=== PATIENT | male | born 1960 | race Caucasian/White ===

== ENCOUNTER → 2016-11-24 | Outpatient (CLI) | payer OTHER ==
[~2016-11-24] MED LIST: ALEV220C2 PO; AMLO10TA PO; ASPI1TAB PO; ATOR1TAB21 PO; BAYE325T12 PO; HYDR-3713 PO; HYDR10TAB PO; MECL-68 PO; METF500T PO; METO50TA2 PO
--- NOTE | 2016-11-24 08:54 | REP ---
URINARY TRACT SONOGRAPHY AND RENAL ARTERY DOPPLER ASSESSMENT: HISTORY: Chronic kidney disease stage III and hypertension. MORPHOLOGIC FINDINGS: Scanning through the level of the urinary bladder shows that it is largely empty at the time of scanning. Prostate is somewhat heterogeneous and enlarged elevating the floor the bladder. Incidental note is made of fatty infiltration of the liver. Renal cortical echogenicity pattern is normal and contours are smooth on both sides. No hydronephrosis is seen in either kidney. There is mild cortical scarring on the right. No mass or cyst is seen. No calculus is noted. Right renal dimensions of 12.9 x 6.0 x 5.6 cm. The left kidney measures 12.1 x 6.2 x 7.1 cm. RENAL ARTERY DOPPLER ASSESSMENT: Peak systolic flow velocity in the abdominal aorta at the level of the main renal arteries is normal at 98.4 cm/s. Peak systolic flow velocity measured in the right main renal artery is 86.1 cm/s and that in the left main renal artery is also 86.1 cm/s. These values are normal. Renal to aortic flow velocity ratios are therefore 0.9 bilaterally and these ratios are normal. The resistive indices and acceleration times are measured in the intralobar arteries of the upper, mid and lower pole region of each kidney. These values are normal bilaterally. IMPRESSION: Mild cortical scarring right kidney. Fatty infiltration of the liver. Prominent prostate. No Doppler evidence to suggest renal artery stenosis. Signed by Almas Mcdonald MD 11/24/2016 08:06 P
== END ==
LOC: M RAD 07:15
PROVIDERS: ATTEND Family Medicine
DX: I12.9 Hypertensive chronic kidney disease with stage 1 through stage 4 chronic kidney disease, or unspecified chronic kidney disease (principal); N18.3 Chronic kidney disease, stage 3 (moderate); K76.0 Fatty (change of) liver, not elsewhere classified

== ENCOUNTER 2017-02-13 20:13 | Emergency (ER) | payer OTHER ==
[~2017-02-13] VITALS: Ht 170.2 cm; Wt 117.5 kg
[2017-02-13] MEDS ORDERED: CHLO100T9 PO (20:32)
[2017-02-13] MEDS ORDERED: BENA40TA2 PO (20:32)
[2017-02-13] MEDS ORDERED: DILT240C77 PO (20:32)
[2017-02-13] MEDS ORDERED: VOLT1GEL24 TD (20:32)
[2017-02-13] MEDS ORDERED: LABE30TA PO (20:32)
[2017-02-13] MEDS ORDERED: CLON-412 PO (20:32)
[2017-02-13] MEDS ORDERED: MECL-86 PO (20:32)
[2017-02-13] MEDS ORDERED: ASPI81TA85 PO (20:32)
[2017-02-13] MEDS ORDERED: GABA-283 PO (20:34)
[2017-02-13] MEDS ORDERED: ATOR1TAB21 PO (20:34)
--- NOTE | 2017-02-13 21:22 | ECGEPIP ---
Stationary ECG Study [facility] - ED Test Date: 2017-02-13 Pat Name: CHINO DORMAN Department: Room: - Gender: M [employer]: kimberlee : 1960 Requested By: NORA Castañeda Order Number: [id number] Reading MD: Barbara Hernandez Measurements Intervals [place] Rate: 66 P: 22 MA: 179 QRS: 55 QRSD: 110 T: 63 QT: 416 QTc: 438 Interpretive Statements SINUS RHYTHM IVCD Electronically Signed On 02-13-2017 21:21:48 EDT by Barbara Hernandez
[2017-02-13] MEDS ORDERED: MECLIZINE 25 MG TABLET PO ONE (21:45)
[2017-02-13 21:57] LABS: BASO # 0.1 K/mm3 (0.0-0.2); BASO % 0.4 % (0.0-1.0); EOS # 0.2 K/mm3 (0.0-0.50); EOS % 1.2 % (0.0-3.0); LARGE UNSTAINED CELL # 0.3 K/mm3 (0.0-0.4); LARGE UNSTAINED CELL % 1.7 % (0.0-4.0); LYMPH % 22.3 % (24.0-44.0); MEAN CORPUSCULAR HEMOGLOBIN 29.1 pg (27.0-33.0); MEAN CORPUSCULAR HGB CONC 33.6 g/dl (32.0-36.5); MEAN CORPUSCULAR VOLUME 86.4 fl (80.0-96.0); MONO # 0.7 K/mm3 (0.0-0.8); MONO % 4.1 % (0.0-5.0); NEUTROPHILS # 11.7 K/mm3 (1.8-7.7); NEUTROPHILS % 70.4 % (36.0-66.0); PLATELET COUNT, AUTOMATED 296 k/mm3 (150-450); RED CELL DISTRIBUTION WIDTH 12.9 % (11.5-14.5); WHITE BLOOD COUNT 16.6 K/mm3 (4.0-10.0)
[2017-02-13 22:22] LABS: CALCIUM LEVEL 8.7 MG/DL (8.5-10.1); CREATININE FOR GFR 1.58 MG/DL (0.70-1.30); GLOMERULAR FILTRATION RATE 48.2 (>56); POTASSIUM SERUM 3.8 MEQ/L (3.5-5.1)
[2017-02-13] MEDS ORDERED: MECL-68 PO (23:33)
[2017-02-13 23:44] VITALS: BP 134/68
--- NOTE | 2017-02-14 10:05 | REP ---
PORTABLE CHEST: Two views . HISTORY: Dyspnea and cough. COMPARISON STUDY: May 03, 2016. FINDINGS: EKG monitoring electrodes overlie the chest. The lungs are well inflated and clear. Pulmonary vasculature is not increased. No significant bony abnormality is seen. IMPRESSION: No active disease. Signed by Almas Mcdonald MD 02/14/2017 11:49 A
== END 2017-02-13 23:45 | disposition home or self-care (01) ==
LOC: M ED 20:53
DX: R42 Dizziness and giddiness (principal); R06.02 Shortness of breath; I12.9 Hypertensive chronic kidney disease with stage 1 through stage 4 chronic kidney disease, or unspecified chronic kidney disease; E11.9 Type 2 diabetes mellitus without complications; Z79.82 Long term (current) use of aspirin; Z79.899 Other long term (current) drug therapy; Z79.84 Long term (current) use of oral hypoglycemic drugs

== ENCOUNTER → 2017-03-26 | Outpatient (REF) | payer OTHER ==
[~2017-03-26] MED LIST changes: +ASPI81TA85 PO; +BENA40TA2 PO; +CHLO100T9 PO; +CLON-412 PO; +DILT240C77 PO; +GABA-283 PO; +LABE30TA PO; +MECL-86 PO; +VOLT1GEL24 TD
[2017-03-26 18:24] LABS: MEAN CORPUSCULAR HEMOGLOBIN 30.1 pg (27.0-33.0); MEAN CORPUSCULAR HGB CONC 34.5 g/dl (32.0-36.5); RED CELL DISTRIBUTION WIDTH 13.3 % (11.5-14.5); WHITE BLOOD COUNT 13.1 K/mm3 (4.0-10.0)
[2017-03-26 18:43] LABS: ALBUMIN 3.3 GM/DL (3.2-5.2); ALKALINE PHOSPHATASE 110 U/L (45-117); ALT/SGPT 41 U/L (12-78); ANION GAP 5 MEQ/L (8-16); AST/SGOT 30 U/L (15-37); BILIRUBIN,TOTAL 0.5 MG/DL (0.2-1.0); BLOOD UREA NITROGEN 8 MG/DL (7-18); CALCIUM LEVEL 8.6 MG/DL (8.5-10.1); CARBON DIOXIDE LEVEL 29 MEQ/L (21-32); CHLORIDE LEVEL 105 MEQ/L (98-107); CHOLESTEROL LEVEL 227 MG/DL (<200); CREATININE FOR GFR 1.02 MG/DL (0.70-1.30); GLOMERULAR FILTRATION RATE > 60.0 (>56); GLUCOSE, FASTING 205 MG/DL (70-105); POTASSIUM SERUM 4.7 MEQ/L (3.5-5.1); SODIUM LEVEL 139 MEQ/L (136-145); TOTAL PROTEIN 7.4 GM/DL (6.4-8.2); TRIGLYCERIDES LEVEL 166 MG/DL (<150)
== END ==
LOC: M SFHCLERA 09:03
PROVIDERS: ATTEND Family Medicine
DX: E11.9 Type 2 diabetes mellitus without complications (principal)

== ENCOUNTER → 2017-09-23 | Outpatient (CLI) | payer OTHER ==
[~2017-09-23] MED LIST changes: -BENA40TA2 PO; +BENA40TA7 PO; -METF500T PO; +METF500T13 PO; -METO50TA2 PO; +METO50TA7 PO; +VOLT1GEL15 TD; -VOLT1GEL24 TD
--- NOTE | 2017-09-23 18:39 | REP ---
RIGHT FOOT SERIES: Four views of the right foot are performed. I see no acute fracture or dislocation. There is mild posterior and inferior calcaneal spurring. There is mild narrowing and subchondral sclerosis at the first metatarsophalangeal joint. There is mild diffuse narrowing of the interphalangeal joints. IMPRESSION: Mild degenerative changes. No fracture or dislocation. Signed by Sanchez Mina MD 09/23/2017 08:12 P
== END ==
LOC: M LRY 17:16
PROVIDERS: ATTEND Nurse Practitioner Family
DX: M79.671 Pain in right foot (principal)

== ENCOUNTER → 2017-11-19 | Outpatient (REF) | payer OTHER ==
[2017-11-19 19:31] LABS: HEMOGLOBIN 14.8 g/dl (14.0-18.0); MEAN CORPUSCULAR HGB CONC 32.9 g/dl (32.0-36.5); MEAN CORPUSCULAR VOLUME 85.1 fl (80.0-96.0); PLATELET COUNT, AUTOMATED 327 10^3/uL (150-450); RED BLOOD COUNT 5.29 10^6/uL (4.30-6.10); RED CELL DISTRIBUTION WIDTH 12.9 % (11.5-14.5); WHITE BLOOD COUNT 11.7 10^3/uL (4.0-10.0)
[2017-11-19 19:49] LABS: ESTIMATED AVERAGE GLUCOSE 192 MG/DL (60-110); HEMOGLOBIN A1c 8.3 %
[2017-11-19 19:50] LABS: ALBUMIN 3.4 GM/DL (3.2-5.2); ALBUMIN/GLOBULIN RATIO 0.81 (1.00-1.93); ALKALINE PHOSPHATASE 121 U/L (45-117); ALT/SGPT 28 U/L (12-78); ANION GAP 6 MEQ/L (8-16); AST/SGOT 15 U/L (7-37); BILIRUBIN,TOTAL 0.5 MG/DL (0.2-1.0); BLOOD UREA NITROGEN 13 MG/DL (7-18); CALCIUM LEVEL 8.2 MG/DL (8.5-10.1); CARBON DIOXIDE LEVEL 29 MEQ/L (21-32); CHLORIDE LEVEL 105 MEQ/L (98-107); CHOLESTEROL LEVEL 201 MG/DL (<200); CHOLESTEROL RISK RATIO 6.483 (<5); CREATININE FOR GFR 0.99 MG/DL (0.70-1.30); GLOMERULAR FILTRATION RATE > 60.0 (>56); GLUCOSE, FASTING 186 MG/DL (70-105); HDL CHOLESTEROL 31 MG/DL (>40); LDL CHOLESTEROL 148.6 MG/DL (<100); NON-HDL-C 170 MG/DL; POTASSIUM SERUM 5.1 MEQ/L (3.5-5.1); SODIUM LEVEL 140 MEQ/L (136-145); TOTAL PROTEIN 7.6 GM/DL (6.4-8.2); TRIGLYCERIDES LEVEL 107 MG/DL (<150); URIC ACID 5.3 MG/DL (3.5-7.2)
[2017-11-19 20:06] LABS: MAU/CREAT RATIO 133.1 MCG/MG (0.0-30.0)
== END ==
LOC: M SFHCLERA 09:28
DX: I10 Essential (primary) hypertension (principal)
CPT/HCPCS: 84443

== ENCOUNTER → 2018-02-18 | Outpatient (REF) | payer OTHER ==
[2018-02-18 18:58] LABS: ANION GAP 5 MEQ/L (8-16); BLOOD UREA NITROGEN 10 MG/DL (7-18); CALCIUM LEVEL 8.6 MG/DL (8.5-10.1); CARBON DIOXIDE LEVEL 29 MEQ/L (21-32); CHLORIDE LEVEL 106 MEQ/L (98-107); CHOLESTEROL LEVEL 194 MG/DL (<200); CHOLESTEROL RISK RATIO 6.062 (<5); CREATININE FOR GFR 0.99 MG/DL (0.70-1.30); GLOMERULAR FILTRATION RATE > 60.0 (>56); GLUCOSE, FASTING 145 MG/DL (70-100); HDL CHOLESTEROL 32 MG/DL (>40); LDL CHOLESTEROL 132.6 MG/DL (<100); NON-HDL-C 162 MG/DL; SODIUM LEVEL 140 MEQ/L (136-145); TRIGLYCERIDES LEVEL 147 MG/DL (<150)
[2018-02-18 19:03] LABS: ESTIMATED AVERAGE GLUCOSE 154 MG/DL (60-110)
== END ==
LOC: M SFHCLERA 09:03
DX: E11.9 Type 2 diabetes mellitus without complications (principal); E78.5 Hyperlipidemia, unspecified; I10 Essential (primary) hypertension
CPT/HCPCS: 83036

== ENCOUNTER → 2018-04-15 | Outpatient (REF) | payer OTHER ==
[2018-04-15 19:23] LABS: CHOLESTEROL LEVEL 116 MG/DL (<200); CHOLESTEROL RISK RATIO 3.741 (<5); HDL CHOLESTEROL 31 MG/DL (>40); LDL CHOLESTEROL 72.4 MG/DL (<100); NON-HDL-C 85 MG/DL; TRIGLYCERIDES LEVEL 63 MG/DL (<150)
[2018-04-15 19:28] LABS: ESTIMATED AVERAGE GLUCOSE 137 MG/DL (60-110); HEMOGLOBIN A1c 6.4 %
== END ==
LOC: M SFHCLERA 09:06
DX: E11.9 Type 2 diabetes mellitus without complications (principal)

== ENCOUNTER → 2018-06-24 | Outpatient (REF) | payer OTHER ==
[2018-06-24 19:00] LABS: ANION GAP 7 MEQ/L (8-16); BLOOD UREA NITROGEN 22 MG/DL (7-18); CALCIUM LEVEL 8.8 MG/DL (8.8-10.2); CARBON DIOXIDE LEVEL 31 MEQ/L (21-32); CHLORIDE LEVEL 103 MEQ/L (98-107); CREATININE FOR GFR 1.37 MG/DL (0.70-1.30); GLOMERULAR FILTRATION RATE 56.4 (>49); GLUCOSE, FASTING 93 MG/DL (70-100); POTASSIUM SERUM 4.6 MEQ/L (3.5-5.1); SODIUM LEVEL 141 MEQ/L (136-145)
== END ==
LOC: M SFHCLERA 09:02
DX: I10 Essential (primary) hypertension (principal)

== ENCOUNTER → 2018-10-05 | Outpatient (REF) | payer OTHER ==
[2018-10-05 12:27] LABS: ANION GAP 10 MEQ/L (8-16); BLOOD UREA NITROGEN 32 MG/DL (7-18); CALCIUM LEVEL 8.9 MG/DL (8.8-10.2); CARBON DIOXIDE LEVEL 28 MEQ/L (21-32); CHLORIDE LEVEL 101 MEQ/L (98-107); CREATININE FOR GFR 1.64 MG/DL (0.70-1.30); GLOMERULAR FILTRATION RATE 45.8 (>49); GLUCOSE, FASTING 227 MG/DL (70-100); POTASSIUM SERUM 4.7 MEQ/L (3.5-5.1); SODIUM LEVEL 139 MEQ/L (136-145)
[2018-10-05 12:45] LABS: ESTIMATED AVERAGE GLUCOSE 180 MG/DL (60-110); HEMOGLOBIN A1c 7.9 %
== END ==
LOC: M SFHCLERA 08:35
DX: E11.9 Type 2 diabetes mellitus without complications (principal)

== ENCOUNTER → 2019-01-31 | Outpatient (REF) | payer OTHER ==
[~2019-01-31] MED LIST changes: -GABA-283 PO; +GABA-845 PO; +LABE300T2 PO; -LABE30TA PO
== END ==
LOC: M SFHCLERA 08:22
PROVIDERS: ATTEND Family Medicine
DX: Z53.9 Procedure and treatment not carried out, unspecified reason (principal); E78.5 Hyperlipidemia, unspecified; E11.9 Type 2 diabetes mellitus without complications

== ENCOUNTER → 2019-02-24 | Outpatient (REF) | payer OTHER ==
[~2019-02-24] MED LIST changes: -ASPI1TAB PO; +ASPI81TA26 PO; +DILT1CAP6 PO; -DILT240C77 PO; +HYDR-2773 PO; -HYDR10TAB PO
[2019-02-24 12:32] LABS: ALBUMIN 3.4 GM/DL (3.2-5.2); ALT/SGPT 21 U/L (12-78); BILIRUBIN,TOTAL 0.5 MG/DL (0.2-1.0); BLOOD UREA NITROGEN 14 MG/DL (7-18); CALCIUM LEVEL 8.5 MG/DL (8.8-10.2); CARBON DIOXIDE LEVEL 29 MEQ/L (21-32); CHLORIDE LEVEL 106 MEQ/L (98-107); CHOLESTEROL LEVEL 176 MG/DL (<200); CHOLESTEROL RISK RATIO 5.677 (<5); CREATININE FOR GFR 1.06 MG/DL (0.70-1.30); GLOMERULAR FILTRATION RATE > 60.0 (>49); GLUCOSE, FASTING 133 MG/DL (70-100); HDL CHOLESTEROL 31 MG/DL (>40); LDL CHOLESTEROL 124.2 MG/DL (<100); NON-HDL-C 145 MG/DL; POTASSIUM SERUM 4.5 MEQ/L (3.5-5.1); SODIUM LEVEL 141 MEQ/L (136-145); TOTAL PROTEIN 7.7 GM/DL (6.4-8.2); TRIGLYCERIDES LEVEL 104 MG/DL (<150)
[2019-02-24 12:46] LABS: HEMOGLOBIN A1c 7.2 %
[2019-02-24 12:48] LABS: MALB URINE SIEMENS 57.9 MG/L; MAU/CREAT RATIO 27.3 MCG/MG (0.0-30.0)
== END ==
LOC: M SFHCLERA 09:05
PROVIDERS: ATTEND Family Medicine
DX: E78.5 Hyperlipidemia, unspecified (principal); E11.9 Type 2 diabetes mellitus without complications

== ENCOUNTER 2019-06-16 10:13 | Emergency (ER) | payer OTHER ==
[~2019-06-16] VITALS: Ht 170.2 cm; Wt 113.2 kg
[2019-06-16] MEDS ORDERED: HEPARIN SOD (PORCINE) 5000 UNITS/ML VIAL ONE (10:14)
[2019-06-16] MEDS ORDERED: CLOPIDOGREL 300 MG TAB (PLAVIX) ONE (10:14)
[2019-06-16] MEDS ORDERED: HEPARIN 25,000 UNITS/250 ML D5W BAG (100 UNITS/ML) ONE (10:14)
[2019-06-16] MEDS ORDERED: NITROGLYCERIN 0.4 MG SUBL TABLET As Ordered ONE (10:39)
[2019-06-16] MEDS ORDERED: ASPIRIN 81 MG CHEW TABLET As Ordered ONE (10:39)
[2019-06-16] MEDS: NITROGLYCERIN 0.4 MG SUBL TABLET SL PRN ×2 (10:44→10:48)
[2019-06-16] MEDS ORDERED: ASPIRIN 81 MG CHEW TABLET PO ONE (10:45)
[2019-06-16] MEDS ORDERED: ONDANSETRON 4MG/2ML VIAL (J2405) IV ONE (10:45)
[2019-06-16] MEDS ORDERED: TENECTEPLASE 50 MG KIT (TNKase)(J3101) IV ONE (10:45)
[2019-06-16 10:48] VITALS: BP 173/97
[2019-06-16] MEDS ORDERED: HEPARIN DRIP 25,000 UNITS in APPROPRIATE DILUENT 1 EA IV SCH (10:48)
[2019-06-16 10:49] LABS: BASO # 0.1 10^3/uL (0.0-0.2); BASO % 0.8 % (0.0-1.0); EOS # 0.4 10^3/uL (0.0-0.50); EOS % 2.1 % (0.0-3.0); HEMATOCRIT 50.9 % (42.0-52.0); HEMOGLOBIN 17.3 g/dl (13.5-17.5); LYMPH # 3.4 10^3/uL (1.5-4.5); LYMPH % 19.9 % (24.0-44.0); MEAN CORPUSCULAR HEMOGLOBIN 28.8 pg (27.0-33.0); MEAN CORPUSCULAR VOLUME 84.8 fl (80.0-96.0); MONO % 5.6 % (0.0-5.0); NEUTROPHILS # 12.2 10^3/uL (1.8-7.7); NEUTROPHILS % 71.2 % (36.0-66.0); PLATELET COUNT, AUTOMATED 376 10^3/uL (150-450); WHITE BLOOD COUNT 17.1 10^3/uL (4.0-10.0)
--- NOTE | 2019-06-16 10:49 | REP ---
HISTORY: Chest pain. COMPARISON: 02/13/2017 The technique utilized in obtaining the radiograph has magnified the cardiac silhouette and accentuated the interstitial markings. FINDINGS: The superior mediastinal structures are midline. The cardiac silhouette is unremarkable in size, shape and position. The diaphragmatic surfaces of the lungs are regular and the costophrenic angles are clear. The pulmonary cifuentes are clear. The imaged osseous structures are intact. IMPRESSION: There is no acute cardiopulmonary disease. Mild cardiomegaly cannot be ruled out. Electronically Signed by Dk Doyle DO 06/16/2019 12:57 P
[2019-06-16] MEDS ORDERED: CLOPIDOGREL 300 MG TAB (PLAVIX) PO ONE (11:00)
[2019-06-16] MEDS ORDERED: MORPHINE 4 MG/ML 1ML VIAL/SYRINGE (J2270) IV PRN (11:00)
[2019-06-16] MEDS ORDERED: HEPARIN SOD (PORCINE) 5000 UNITS/ML VIAL IV ONE (11:00)
[2019-06-16 11:02] LABS: INR 0.97; PROTHROMBIN TIME 12.6 SECONDS (11.8-14.0)
[2019-06-16 11:03] LABS: PARTIAL THROMBOPLASTIN TIME 28.3 SECONDS (25.0-38.4)
[2019-06-16 11:13] LABS: CALCIUM LEVEL 8.8 MG/DL (8.8-10.2); CK-MB VALUE MASS 6.5 NG/ML (<3.6); CREATININE FOR GFR 1.35 MG/DL (0.70-1.30); GLOMERULAR FILTRATION RATE 57.2 (>49); MB/CK RELATIVE INDEX 4.19 (< OR =4); POTASSIUM SERUM 4.5 MEQ/L (3.5-5.1); TROPONIN I 0.38 NG/ML (< 0.10)
[2019-06-16 11:14] VITALS: BP 127/72
--- NOTE | 2019-06-16 12:51 | ECGEPIP ---
[facility] - ED Test Date: 2019-06-16 Pat Name: CHINO DORMAN Department: Room: - Gender: Male [employer] Associate: : 1960 Requested By: Barbara Hernandez Order Number: [id number] Reading MD: Barbara Hernandez Measurements Intervals [place] Rate: 76 P: 10 [place]: 181 QRS: 109 QRSD: 123 T: 81 QT: 391 QTc: 441 Interpretive Statements SINUS RHYTHM MARKED RIGHT AXIS DEVIATION SEPTAL MYOCARDIAL INFARCTION, AGE INDETERMINATE ST ELEVATION, INFERIOR ACUTE VT, CLINICAL CORRELATION Electronically Signed on 06-16-2019 12:50:35 EDT by Barbara Hernandez
== END 2019-06-16 11:20 | disposition short-term general hospital (02) ==
LOC: M ED 10:13
DX: I21.3 ST elevation (STEMI) myocardial infarction of unspecified site (principal); E11.9 Type 2 diabetes mellitus without complications; I10 Essential (primary) hypertension; E78.5 Hyperlipidemia, unspecified; Z86.73 Personal history of transient ischemic attack (TIA), and cerebral infarction without residual deficits; Z79.899 Other long term (current) drug therapy; Z79.84 Long term (current) use of oral hypoglycemic drugs; Z79.82 Long term (current) use of aspirin
CPT/HCPCS: 71045; 80048; 82550; 82553; 85025; 85610; 85730; 93005; 93041; 94760; 96374; 96375; 99291; J2405

== ENCOUNTER → 2019-06-22 | Outpatient (REF) | payer OTHER ==
[2019-06-22 20:26] LABS: CALCIUM LEVEL 9.4 MG/DL (8.8-10.2); CHOLESTEROL RISK RATIO 5.16 (<5); CREATININE FOR GFR 1.55 MG/DL (0.70-1.30); GLOMERULAR FILTRATION RATE 48.8 (>49); POTASSIUM SERUM 4.7 MEQ/L (3.5-5.1)
[2019-06-22 21:03] LABS: HEMOGLOBIN A1c 8.6 %
== END ==
LOC: M SFHCLERA 15:12
PROVIDERS: ATTEND Family Medicine
DX: E11.9 Type 2 diabetes mellitus without complications (principal)

== ENCOUNTER → 2019-09-01 | Outpatient (REF) | payer OTHER ==
[2019-09-01 18:43] LABS: CALCIUM LEVEL 9.1 MG/DL (8.8-10.2); CREATININE FOR GFR 1.31 MG/DL (0.70-1.30); GLOMERULAR FILTRATION RATE 59.2 (>49); POTASSIUM SERUM 4.1 MEQ/L (3.5-5.1)
[2019-09-01 19:16] LABS: HEMOGLOBIN A1c 7.1 %
== END ==
LOC: M SFHCLERA 09:55
PROVIDERS: ATTEND Family Medicine
DX: E11.9 Type 2 diabetes mellitus without complications (principal); I10 Essential (primary) hypertension

== ENCOUNTER → 2020-03-24 | Outpatient (CLI) | payer OTHER ==
[~2020-03-24] MED LIST changes: +BENA40TA5 PO; -BENA40TA7 PO; +LISI-538 PO; -MECL-68 PO; +MECL1TAB31 PO; +TORS20TA2 PO
--- NOTE | 2020-03-24 16:50 | REPPI ---
CHEST, TWO VIEWS: Two views of the chest are performed and compared to several prior studies, most recently 06/16/2019. There is mild cardiomegaly. There is mild vascular congestion and interstitial edema. There is chronic elevation of the right hemidiaphragm. The mediastinal silhouette appears unremarkable. There are mild degenerative changes of the spine. IMPRESSION: Mild cardiomegaly with vascular congestion and mild interstitial edema. Electronically Signed by Sanchez Mina MD 03/24/2020 07:34 P
== END ==
LOC: M PLAIMG 14:32
PROVIDERS: ATTEND Family Medicine
DX: R06.01 Orthopnea (principal); I51.7 Cardiomegaly; R60.9 Edema, unspecified

== ENCOUNTER 2020-04-01 12:36 | Emergency (ER) | payer OTHER ==
[~2020-04-01] VITALS: Ht 170.2 cm; Wt 122.4 kg
[~2020-04-01 12:36] MED LIST changes: -LISI-538 PO; -TORS20TA2 PO
[2020-04-01] MEDS ORDERED: LISI-538 PO (13:00)
[2020-04-01] MEDS ORDERED: TORS20TA2 PO (13:00)
[2020-04-01 13:13] LABS: BASO # 0.1 10^3/uL (0.0-0.2); BASO % 0.4 % (0.0-1.0); EOS # 0.1 10^3/uL (0.0-0.5); EOS % 0.7 % (0.0-3.0); HEMATOCRIT 41.4 % (42.0-52.0); HEMOGLOBIN 13.3 g/dl (13.5-17.5); LYMPH # 2.5 10^3/uL (1.5-5.0); LYMPH % 18.8 % (24.0-44.0); MEAN CORPUSCULAR HEMOGLOBIN 26.9 pg (27.0-33.0); MEAN CORPUSCULAR HGB CONC 32.1 g/dl (32.0-36.5); MEAN CORPUSCULAR VOLUME 83.6 fl (80.0-96.0); MONO # 0.9 10^3/uL (0.0-0.8); MONO % 6.5 % (0.0-5.0); NEUTROPHILS # 9.8 10^3/uL (1.5-8.5); NEUTROPHILS % 73.2 % (36.0-66.0); PLATELET COUNT, AUTOMATED 357 10^3/uL (150-450); RED BLOOD COUNT 4.95 10^6/uL (4.30-6.10); WHITE BLOOD COUNT 13.5 10^3/uL (4.0-10.0)
[2020-04-01 13:25] LABS: INR 1.17; PROTHROMBIN TIME 14.6 SECONDS (11.8-14.0)
[2020-04-01 13:26] LABS: PARTIAL THROMBOPLASTIN TIME 27.2 SECONDS (25.0-38.4)
[2020-04-01 13:58] LABS: ALBUMIN 3.1 GM/DL (3.2-5.2); ALT/SGPT 62 U/L (12-78); BILIRUBIN,DIRECT 0.3 MG/DL (0.0-0.2); BILIRUBIN,TOTAL 0.9 MG/DL (0.2-1.0); BLOOD UREA NITROGEN 14 MG/DL (7-18); CALCIUM LEVEL 8.3 MG/DL (8.8-10.2); CARBON DIOXIDE LEVEL 25 MEQ/L (21-32); CHLORIDE LEVEL 100 MEQ/L (98-107); CPK CREATINE PHOSPHOKINASE 190 U/L (39-308); CREATININE FOR GFR 1.28 MG/DL (0.70-1.30); GLOMERULAR FILTRATION RATE > 60.0 (>49); GLUCOSE, FASTING 304 MG/DL (70-100); LIPASE 53 U/L (73-393); MAGNESIUM LEVEL 1.9 MG/DL (1.8-2.4); MB/CK RELATIVE INDEX 1.58 (< OR =4); NT-PRO BNP 4859 PG/ML (<125); POTASSIUM SERUM 4.2 MEQ/L (3.5-5.1); SODIUM LEVEL 134 MEQ/L (136-145); TOTAL PROTEIN 6.9 GM/DL (6.4-8.2); TROPONIN I 0.93 NG/ML (< 0.10)
[2020-04-01] MEDS ORDERED: FUROSEMIDE 100MG/10ML VIAL (J1940) IV ONE (14:15)
--- NOTE | 2020-04-01 16:52 | REP ---
PORTABLE CHEST X-RAY: SINGLE VIEW. HISTORY: Chest pain. COMPARISON STUDY: June 16, 2019 FINDINGS: Monitoring electrodes overlie the chest. The heart is enlarged, increased in size from the comparison study. The lungs are exposed at a somewhat lesser inspiratory level. There is platelike atelectasis in the left base. There is blunting of the right lateral pleural angle and some fissural thickening is noted. Pulmonary vascular cephalization is seen. IMPRESSION: CHF pattern with small right effusion and cardiomegaly. Platelike atelectasis on the left. Electronically Signed by Almas Mcdonald MD 04/01/2020 06:02 P
[2020-04-01 18:37] LABS: CK-MB VALUE MASS 2.8 NG/ML (<3.6); MB/CK RELATIVE INDEX 1.37 (< OR =4); TROPONIN I 0.83 NG/ML (< 0.10)
--- NOTE | 2020-04-01 18:54 | ECGEPIP ---
[facility] - ED Test Date: 2020-04-01 Pat Name: CHINO DORMAN Department: Room: - Gender: Male [employer]: MARYURI : 1960 Requested By: MAYA KYLE Order Number: [id number] Reading MD: Floyd Machuca Measurements Intervals [place] Rate: 126 P: -38 [place]: 201 QRS: 174 QRSD: 116 T: 38 QT: 389 QTc: 564 Interpretive Statements SINUS TACHYCARDIA WITH OCCASIONAL VENTRICULAR PREMATURE COMPLEXES POSSIBLE RIGHT VENTRICULAR HYPERTROPHY ANTEROSEPTAL MYOCARDIAL INFARCTION, OF INDETERMINATE AGE Electronically Signed on 04-01-2020 18:54:09 EDT by Floyd Machuca
[2020-04-01 19:01] VITALS: BP 148/92
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
== END 2020-04-01 19:01 | disposition short-term general hospital (02) ==
LOC: M ED 12:36
DX: I50.9 Heart failure, unspecified (principal); R55 Syncope and collapse; E11.9 Type 2 diabetes mellitus without complications; I10 Essential (primary) hypertension; I25.2 Old myocardial infarction; Z95.5 Presence of coronary angioplasty implant and graft; Z79.899 Other long term (current) drug therapy; Z79.82 Long term (current) use of aspirin; Z79.84 Long term (current) use of oral hypoglycemic drugs; Z87.891 Personal history of nicotine dependence
CPT/HCPCS: 70450; 71045; 80048; 80076; 82140; 82550; 82553; 83690; 83735; 83880; 84443; 84484; 85025; 85610; 85730; 93005; 93041; 94760; 96374; 99291; J1940

== ENCOUNTER → 2020-05-21 | Outpatient (CLI) | payer OTHER ==
[~2020-05-21] MED LIST changes: -ASPI81TA85 PO; +ASPI81TA86 PO; +LISI-538 PO; +TORS20TA2 PO
[2020-05-21 11:08] LABS: BASO # 0.1 10^3/uL (0.0-0.2); BASO % 0.6 % (0.0-1.0); EOS # 0.2 10^3/uL (0.0-0.5); EOS % 1.2 % (0.0-3.0); HEMOGLOBIN 13.1 g/dl (13.5-17.5); LYMPH # 2.4 10^3/uL (1.5-5.0); LYMPH % 19.1 % (24.0-44.0); MEAN CORPUSCULAR HEMOGLOBIN 25.8 pg (27.0-33.0); MEAN CORPUSCULAR HGB CONC 30.5 g/dl (32.0-36.5); MEAN CORPUSCULAR VOLUME 84.6 fl (80.0-96.0); MONO # 0.7 10^3/uL (0.0-0.8); MONO % 5.4 % (0.0-5.0); NEUTROPHILS # 9.4 10^3/uL (1.5-8.5); NEUTROPHILS % 73.2 % (36.0-66.0); PLATELET COUNT, AUTOMATED 267 10^3/uL (150-450); RED BLOOD COUNT 5.08 10^6/uL (4.30-6.10); WHITE BLOOD COUNT 12.8 10^3/uL (4.0-10.0)
[2020-05-21 11:20] LABS: CALCIUM LEVEL 8.8 MG/DL (8.8-10.2); CHOLESTEROL RISK RATIO 6.954 (<5); CREATININE FOR GFR 1.48 MG/DL (0.70-1.30); GLOMERULAR FILTRATION RATE 51.3 (>49); POTASSIUM SERUM 4.5 MEQ/L (3.5-5.1)
[2020-05-21 12:08] LABS: MAU/CREAT RATIO 455.2 MCG/MG (0.0-30.0)
[2020-05-21 14:28] LABS: HEMOGLOBIN A1c 11.5 %
== END ==
LOC: M PLALAB 08:26
PROVIDERS: ATTEND Family Medicine
DX: E11.9 Type 2 diabetes mellitus without complications (principal); E78.5 Hyperlipidemia, unspecified

== ENCOUNTER → 2020-09-18 | Outpatient (CLI) | payer OTHER ==
--- NOTE | 2020-09-18 10:12 | REP ---
INDICATION: CKD STAGE 3A, BPH WITH LOWER URINARY SYMPTOMS. COMPARISON: 11/24/2016 TECHNIQUE: Standard renal ultrasound FINDINGS: The right kidney is 11.6 x 6.3 x 5.3 cm and the left measures 11.2 x 5.5 x 5.8 cm. Previous exam a demonstrated right kidney 12.9 and left 12.1 cm. The cortical thickness and echogenicity is preserved. There is some mild lobation with the kidney contour unchanged from previous study. No hydronephrosis or hydroureter. I see no stone, solid mass or cyst. No perinephric fluid. IMPRESSION: 1. The renal size, cortical thickness and echogenicity is preserved and symmetric. Appearance grossly unchanged from 11/24/2016. No hydronephrosis, stone, cyst or other new finding. <Electronically signed by Devendra Castanon > 09/18/20 [id number]
--- NOTE | 2020-09-18 10:15 | REP ---
INDICATION: CKD STAGE 3A, BPH WITH LOWER URINARY SYMPTOMS. COMPARISON: None. TECHNIQUE: Pre and postvoid imaging of the bladder FINDINGS: Sonographic evaluation shows the prevoid bladder measurement 5.3 x 5.2 x 4.3 cm giving calculated volume of 77 mL. The postvoid bladder volume is 4.2 x 3.1 x 2.2 cm giving calculated volume of 19 mL. This is a postvoid residual of 24%. Patient did state that the bladder felt full at the time of the examination. The prostate is 3.6 x 3.5 x 3.1 cm giving a volume measurement of 20 cc. No bladder wall thickening, mass, stone or debris. No diverticulum or ureterocele. There was no ureteral jet phenomenon observed during the course of the examination. IMPRESSION: 1. Prevoid volume 77 cc, postvoid volume 19 cc with postvoid residual of 24%. 2. Bladder without mass, wall thickening, stone or other acute finding. 3. No ureteral jet phenomenon during the course of this exam.. <Electronically signed by Devendra Castanon > 09/18/20 [id number]
== END ==
LOC: M RAD 08:29
PROVIDERS: ATTEND Internal Medicine Nephrology
DX: N18.30 Chronic kidney disease, stage 3 unspecified (principal); N40.1 Benign prostatic hyperplasia with lower urinary tract symptoms

== ENCOUNTER 2021-06-04 13:54 | Outpatient (RCR) | payer OTHER ==
[~2021-06-04 13:54] MED LIST changes: -BENA40TA5 PO; +BENA40TA84 PO; +GABA-283 PO; -GABA-845 PO; -LISI-538 PO; +LISI20TA33 PO
[2021-10-19] MEDS ORDERED: ELIQ5TAB PO (10:10)
[2021-10-19] MEDS ORDERED: TOPR50TA PO (10:10)
[2021-10-19] MEDS ORDERED: TORS20TA2 PO (10:10)
[2021-10-19] MEDS ORDERED: K-TA10TA PO (10:10)
[2021-10-19] MEDS ORDERED: FLUO-96 PO (10:10)
[2021-10-19] MEDS ORDERED: NOXI1TAB PO (10:10)
[2021-10-19] MEDS ORDERED: JARD1TAB PO (10:10)
[2021-10-19] MEDS ORDERED: TRUL0.5I SC (10:10)
[2021-10-19] MEDS ORDERED: PLAV1TAB2 PO (10:10)
== END 2021-06-06 ==
LOC: M PT 13:54
PROVIDERS: ATTEND Family Medicine
DX: I63.9 Cerebral infarction, unspecified (principal)

== ENCOUNTER → 2021-06-22 | Outpatient (REF) | payer OTHER ==
[~2021-06-22] MED LIST changes: +BENA40TA5 PO; -BENA40TA84 PO
== END ==
LOC: M LAB REF 17:12
PROVIDERS: ATTEND Internal Medicine Nephrology
DX: E83.42 Hypomagnesemia (principal)

== ENCOUNTER 2021-06-24 07:22 | Outpatient (RCR) | payer OTHER | END 2021-07-07 | LOC: M PT 07:22 | PROVIDERS: ATTEND Family Medicine | DX: I63.9 Cerebral infarction, unspecified (principal) ==

== ENCOUNTER → 2022-07-06 | Outpatient (REF) | payer OTHER ==
[~2022-07-06] MED LIST changes: -BENA40TA5 PO; +BENA40TA84 PO; +ELIQ5TAB PO; +FLUO-96 PO; +JARD1TAB PO; +K-TA10TA PO; -LABE300T2 PO; +LABE300T55 PO; +NOXI1TAB PO; +PLAV1TAB2 PO; +TOPR50TA PO; +TRUL0.5I SC
== END ==
LOC: M LAB REF 16:49
PROVIDERS: ATTEND Internal Medicine Nephrology
DX: E61.1 Iron deficiency (principal); D63.1 Anemia in chronic kidney disease

== ENCOUNTER → 2023-01-13 | Outpatient (REF) | payer OTHER ==
[~2023-01-13] MED LIST changes: +CLOP75TA99 PO; -PLAV1TAB2 PO
[2023-01-13 16:07] LABS: POTASSIUM SERUM 3.9 MMOL/L (3.5-5.1)
== END ==
LOC: M LAB REF 15:10
PROVIDERS: ATTEND Internal Medicine Nephrology
DX: N18.31 Chronic kidney disease, stage 3a (principal)